=== PATIENT | male | born 1985 | race African-American/Black ===

== ENCOUNTER 2016-06-27 07:25 | Emergency (ER) | payer SELFPAY ==
[~2016-06-27] VITALS: Ht 195.6 cm; Wt 90.6 kg
[~2016-06-27 07:25] MED LIST: BACTRIM,SEPT1 TABLET PO; FLEXERIL10 MG PO; MOTRIN800 MG PO; NO HOME MEDS; PERCOCET 5/31 TABLET PO; PROMETHAZINE HC25 M1 PO; ULTRAM50 MG PO; ZANTAC150 MG PO
[2016-06-27] MEDS ORDERED: NAPROSYN500 MG PO (09:50)
[2016-06-27 10:40] VITALS: BP 112/68
== END 2016-06-27 11:05 | disposition home or self-care (01) ==
LOC: EME 07:25
DX: M79.89 Other specified soft tissue disorders (principal); M25.842 Other specified joint disorders, left hand; Z51.89 Encounter for other specified aftercare
CPT/HCPCS: 73130; 99281; 99283

== ENCOUNTER 2016-09-26 23:08 | Emergency (ER) | payer SELFPAY ==
[~2016-09-26] VITALS: Ht 195.6 cm; Wt 90.0 kg
[~2016-09-26 23:08] MED LIST changes: +NAPROSYN500 MG PO
[2016-09-27 00:18] LABS: INFLUENZA A VIRAL ANTIGEN NEGATIVE; INFLUENZA B VIRAL ANTIGEN POSITIVE
[2016-09-27] MEDS ORDERED: PROAIR HFA8.5 GM IH (00:52)
[2016-09-27] MEDS ORDERED: HYCODAN SYRUP480 ML PO (00:52)
[2016-09-27 01:10] VITALS: BP 133/69
== END 2016-09-27 01:11 | disposition home or self-care (01) ==
LOC: EME 23:08
DX: J10.1 Influenza due to other identified influenza virus with other respiratory manifestations (principal); F17.200 Nicotine dependence, unspecified, uncomplicated; Z88.8 Allergy status to other drugs, medicaments and biological substances; Z88.6 Allergy status to analgesic agent
CPT/HCPCS: 71010; 87502; 94640; 99281; 99284

== ENCOUNTER 2016-10-23 10:53 | Emergency (ER) | payer SELFPAY ==
[~2016-10-23] VITALS: Ht 195.6 cm; Wt 81.3 kg
[~2016-10-23 10:53] MED LIST changes: +HYCODAN SYRUP480 ML PO; +PROAIR HFA8.5 GM IH
[2016-10-23] MEDS ORDERED: NAPROSYN500 MG PO (12:07)
[2016-10-23] MEDS ORDERED: AUGMENTIN875 MG PO (12:08)
[2016-10-23 12:15] VITALS: BP 124/71
== END 2016-10-23 12:16 | disposition home or self-care (01) ==
LOC: EME 10:53
DX: S11.95XA Open bite of unspecified part of neck, initial encounter (principal); S51.851A Open bite of right forearm, initial encounter; S00.83XA Contusion of other part of head, initial encounter; S50.11XA Contusion of right forearm, initial encounter; Y04.1XXA Assault by human bite, initial encounter; Y07.499 Other family member, perpetrator of maltreatment and neglect; L51.1 Stevens-Johnson syndrome; Z88.8 Allergy status to other drugs, medicaments and biological substances; Z88.6 Allergy status to analgesic agent
CPT/HCPCS: 73110; 73130; 99281; 99283

== ENCOUNTER 2017-04-09 08:52 | Emergency (ER) | payer SELFPAY ==
[~2017-04-09] VITALS: Ht 195.6 cm; Wt 90.2 kg
[~2017-04-09 08:52] MED LIST changes: +AUGMENTIN875 MG PO
[2017-04-09] MEDS ORDERED: VENTOLIN HFA18 GM IH (10:09)
[2017-04-09 10:17] VITALS: BP 125/55
== END 2017-04-09 10:21 | disposition home or self-care (01) ==
LOC: EME 08:52
DX: J06.9 Acute upper respiratory infection, unspecified (principal); R11.0 Nausea; F41.9 Anxiety disorder, unspecified; F17.200 Nicotine dependence, unspecified, uncomplicated; Z88.8 Allergy status to other drugs, medicaments and biological substances
CPT/HCPCS: 71020; 94640 76; 99281; 99284